=== PATIENT | male | born 1950 | race Caucasian/White ===

== ENCOUNTER 2016-12-06 13:02 | Emergency (ER) | payer OTHER ==
--- NOTE | ~2016-12-06 | MR18 ---
[facility] A Service [facility] RADIOLOGY TEXT RESULTS PATIENT: SUSI GALINDO LOCATION: [facility] : 50 UNIT #: [id number] AGE: [address]: Praveen Davis MD SEX: M ORDER DR: [id number] [facility] [address] [place], [place] [address] [id number] E MR#: [id number] Acc #: [id number] NAME: SUSI GALINDO : 1950 SEX: M STUDY DATE/TIME: 12/06/2016 10:28 UNIT: ROLA ROOM: STUDY DESCRIPTION: MR Brain Wo Contrast Attending Physician: Praveen Davis M.D. Ordering Physician: Praveen Davis M.D. Primary Care Physician: Letty Carrillo M.D. MRI CENTER REPORT This report is preliminary unless electronic signature is present. EXAM MR brain, 12/06 INDICATION Hypertension. Patient awoke earlier this morning feeling off balance. Patient does not feel right. TECHNIQUE Multisequence multiplanar imaging was performed through the brain without contrast in a high field strength magnet. COMPARISON Brain MRI from 08/17/2016. FINDINGS Diffusion imaging reveals no evidence of acute or subacute ischemic change. Ventricular size and configuration are stable. Scattered T2 hyperintensities in the white matter are most consistent with chronic small vessel ischemic disease. These appear stable. No evidence of hemorrhage. The major intracranial flow voids are maintained. There are no masses. Craniovertebral junction is normal. Note is made of some chronic mucosal thickening in the paranasal sinuses. These are most pronounced in the right maxillary sinus. IMPRESSION 1. No acute findings in the brain. 2. Mild chronic small vessel ischemic disease in the white matter, stable from prior. 3. Chronic mucosal thickening in the paranasal sinuses. Dictated by... Bud Johnson Jr., M.D. [facility] A Service [facility] RADIOLOGY TEXT RESULTS PATIENT: SUSI GALINDO LOCATION: [facility] : 50 UNIT #: [id number] AGE: [address]: Praveen Davis MD SEX: M ORDER DR: THIS IS AN ELECTRONICALLY VERIFIED REPORT Bud Johnson Jr., M.D. at 12/06/2016 7:01 PM LAURIE/gene TD: 12/06/2016 13:12 JOB #: [id number] MRI CENTER REPORT Page 1 of 1 COPY
--- NOTE | ~2016-12-06 | CT17 ---
[facility] Service [facility] RADIOLOGY TEXT RESULTS PATIENT: SUSI GALINDO LOCATION: [facility] : 50 UNIT #: [id number] AGE: [address]: Praveen Davis MD SEX: M ORDER DR: [id number] [facility] [address] [place], [place] [address] [id number] E MR#: [id number] Acc #: [id number] NAME: SUSI GALINDO : 1950 SEX: M STUDY DATE/TIME: 12/06/2016 12:03 UNIT: [facility] ROOM: STUDY DESCRIPTION: CT Angio Head Attending Physician: Praveen Davis M.D. Ordering Physician: Praveen Davis M.D. Primary Care Physician: Letty Carrillo M.D. MEDICAL IMAGING REPORT This report is preliminary unless electronic signature is present EXAM Head and neck CT angiogram 12/06/2016 INDICATION Elevated blood pressure today with dizziness and off balance today. Prior history of stroke. TECHNIQUE Axial images were obtained through the head and neck following the IV administration of contrast. 3-D reformats were obtained. Comparison is made with 08/17/2016. This CT examination was performed with one or more of the following radiation dose reduction techniques: automatic exposure control, adjustment of mA and/or kV according to patient size, and iterative reconstruction. FINDINGS Within the neck, there is some minimal plaque disease at the carotid bifurcations, but there is no stenosis by NASCET criteria. There is no evidence of carotid or vertebral dissection. The right vertebral artery is mildly dominant, but both are widely patent. Intracranially, there is no flow-limiting stenosis by NASCET criteria. No aneurysm or vascular malformation is seen. There is no vessel cutoff. Major dural venous sinuses are patent. IMPRESSION 1. Minimal plaque in the carotid bifurcations. No evidence of stenosis by NASCET criteria in the neck. No dissection. 2. Intracranially, there is no aneurysm or flow-limiting stenosis. No vessel cutoff. [facility] RADIOLOGY TEXT RESULTS PATIENT: SUSI GALINDO [id number] 50 UNIT #: [id number] AGE: [address]: Praveen Davis MD SEX: M ORDER DR: Dictated by... Bud Johnson Jr., M.D. THIS IS AN ELECTRONICALLY VERIFIED REPORT Bud Johnson Jr., M.D. at 12/07/2016 8:51 AM LAURIE/hamzah TD: 12/06/2016 14:17 JOB #: [id number] MEDICAL IMAGING REPORT Page 1 of 1 COPY
--- NOTE | ~2016-12-06 | CT23 ---
[facility] A Service of [facility] RADIOLOGY TEXT RESULTS PATIENT: SUSI GALINDO LOCATION: [facility] : 50 UNIT #: [id number] AGE: [address]: Praveen Davis MD SEX: M ORDER DR: [id number] [facility] [address] [place], [place] [address] [id number] E MR#: [id number] Acc #: [id number] NAME: SUSI GALINDO : 1950 SEX: M STUDY DATE/TIME: 12/06/2016 12:03 UNIT: [facility] ROOM: STUDY DESCRIPTION: CT Angio Neck Attending Physician: Praveen Davis M.D. Ordering Physician: Praveen Davis M.D. Primary Care Physician: Letty Carrillo M.D. MEDICAL IMAGING REPORT This report is preliminary unless electronic signature is present EXAM CT angiogram of the neck FINDINGS Please see CT angiogram of the head for results. Dictated by... Bud Johnson Jr., M.D. THIS IS AN ELECTRONICALLY VERIFIED REPORT Bud Johnson Jr., M.D. at 12/07/2016 8:52 AM LAURIE/hamzah TD: 12/06/2016 14:18 JOB #: [id number] MEDICAL IMAGING REPORT Page 1 of 1 COPY
--- NOTE | ~2016-12-06 | EKG ---
PATIENT: SUSI GALINDO UNIT #: [id number] Ventricular Rate: 59 BPM Atrial Rate: 59 BPM P-R Interval: 166 ms QRS Duration: 90 ms Q-T Interval: 422 ms QTC Calculation(Bezet): 417 ms P Hartwick: 237 degrees Calculated R Hartwick: 73 degrees Calculated T Hartwick: 57 degrees Diagnosis Line: Unusual P axis, possible ectopic atrial Diagnosis Line: bradycardia with Premature supraventricular Diagnosis Line: complexes Diagnosis Line: Abnormal ECG Diagnosis Line: When compared with ECG of 17-AUG-2016 00:53, Diagnosis Line: Premature supraventricular complexes are now Diagnosis Line: Present Diagnosis Line: T wave inversion no longer evident in Anterior Diagnosis Line: leads Diagnosis Line: Confirmed by ZEE KESSLER MD ([id number]) on 12/06/2016 Diagnosis Line: 10:37:30 PM INTERPRETING MD: CHECO MENDOZA
--- NOTE | ~2016-12-06 | CR72 ---
[facility] A Service of [facility] & [facility] RADIOLOGY TEXT RESULTS PATIENT: SUSI GALINDO LOCATION: [facility] : 50 UNIT #: [id number] AGE: [address]: Praveen Davis MD SEX: M ORDER DR: [id number] [facility] [address] [place], [place] [address] [id number] MR#: [id number] Acc #: [id number] NAME: SUSI GALINDO : 1950 SEX: M STUDY DATE/TIME: 12/06/2016 10:00 UNIT: [facility] ROOM: STUDY DESCRIPTION: CR Chest Single View Portable Attending Physician: Praveen Davis M.D. Ordering Physician: Praveen Davis M.D. Primary Care Physician: Letty Carrillo M.D. MEDICAL IMAGING REPORT This report is preliminary unless electronic signature is present EXAM Portable AP view of the chest COMPARISON None. INDICATION 66-year-old male with elevated blood pressure today. Dizziness. Former smoker. FINDINGS Cardiomediastinal silhouette is normal. No evidence of pneumothorax, pleural effusion or acute airspace disease. There are calcified granulomas in the right lung with calcified right hilar lymph nodes. No evidence of acute airspace disease. IMPRESSION No acute radiographic abnormality of the chest. Dictated by... Low Kemp M.D. THIS IS AN ELECTRONICALLY VERIFIED REPORT Low Kemp M.D. at 12/10/2016 5:43 PM CAROL/hamzah TD: 12/06/2016 12:09 JOB #: [id number] MEDICAL IMAGING REPORT Page 1 of 1 COPY
[2016-12-06 10:12] LABS: BASOPHIL% 0.7 % (0-2.5); EOSINOPHIL# 0.3 X10e3 (0-0.7); EOSINOPHIL% 4.2 % (0.0-7.0); HEMATOCRIT 44.8 % (38.0-50.0); HEMOGLOBIN 14.7 gm/dL (13.0-16.0); LYMPHOCYTE# 2.1 X10e3 (1.0-3.5); LYMPHOCYTE% 32.8 % (17.0-45.0); MEAN CELL VOLUME 97.2 FL (83-96); MEAN CORPUSCULAR HEMOGLOBIN 31.8 PG (28-34); MEAN CORPUSCULAR HGB CONC 32.7 g/dL (30-36); MEAN PLATELET VOLUME 9.1 FL (6.5-11.5); MONOCYTE# 0.5 X10e3 (0-1.0); MONOCYTE% 8.5 % (3.0-12.0); NEUTROPHIL# 3.4 X10e3 (1.5-7.1); NEUTROPHIL% 53.8 % (40-75); PLATELET COUNT 120 X10e3 (140-420); RED BLOOD COUNT 4.61 X10e (3.90-5.60); WHITE BLOOD COUNT 6.3 X10e3 (4.0-10.5)
[2016-12-06 10:14] LABS: DIFF IND NO
[2016-12-06 10:15] LABS: POC - CKMB 1.2 ng/mL (0.0-7.9); POC - TROPONIN <0.05 ng/mL (<=0.05)
[2016-12-06 11:13] LABS: BILIRUBIN, DIRECT 0.1 mg/dL (0.0-0.2); BILIRUBIN,INDIRECT 0.5 mg/dL (0.0-0.9); BILIRUBIN,TOTAL 0.6 mg/dL (0.2-2.0); BUN/CREATININE RATIO 15.55; CALCIUM SERUM 11.2 mg/dL (8.4-10.2); CREATININE SERUM 0.9 mg/dL (0.6-1.4); GLOM FILT RATE Estimated 88.7 mL/min (>60); POTASSIUM 3.6 mmol/L (3.5-5.1); PROTEIN TOTAL SERUM 6.6 g/dL (6.0-8.3)
[2016-12-06 11:49] LABS: URINE SOURCE CLEAN CATCH
[2016-12-06 11:56] LABS: URINE APPEARANCE CLEAR; URINE BILIRUBIN NEG (NEG); URINE BLOOD NEG (NEG); URINE COLOR YELLOW; URINE GLUCOSE NEG (NEG); URINE KETONE NEG (NEG); URINE LEUKOCYTE ESTERASE NEG (NEG); URINE NITRATE NEG (NEG); URINE PH 7.5 (5-8); URINE PROTEIN NEG (NEG); URINE SPECIFIC GRAVITY 1.013 (1.003-1.035)
[2016-12-06 12:00] LABS: CULTURE INDICATED? NO
[2016-12-06 12:29] LABS: POC - TROPONIN <0.05 ng/mL (<=0.05)
[~2016-12-06 13:02] MED LIST: COUMADIN5 MG PO; ENOXAPARIN100 MG/11 SQ; HYDRALAZINE HCL25 MG PO; HYTRIN10 M1 PO; LIPITOR40 MG; LISINOPRIL20 MG PO; NORCO 5/325 TAB1 TAB PO; PRILOSEC20 M1 PO; PRINIVIL10 MG PO
== END 2016-12-06 14:10 | disposition home or self-care (01) ==
LOC: CED 13:02
PROVIDERS: Emergency Medicine
DX: I10 Essential (primary) hypertension (principal); F17.200 Nicotine dependence, unspecified, uncomplicated; Z88.8 Allergy status to other drugs, medicaments and biological substances; Z91.013 Allergy to seafood
CPT/HCPCS: 36415; 70496; 70498; 70551; 71010; 80048; 80076; 81003; 82553; 82947; 84484; 85025; 93005; 99284; Q9967

== ENCOUNTER 2017-02-02 00:14 | Observation (INO) | payer OTHER ==
--- NOTE | ~2017-02-02 | CO ---
Unit #: [id number] #: [id number] Patient: SUSI GALINDO [id number] [facility] [address] [place], [place] [address] [id number] I MR#: [id number] NAME: SUSI GALINDO ROOM: 302 Age: 66 Sex: M Admission Date: 02/02/2017 : 1950 Attending Physician: Nichelle West M.D. Primary Care Physician: Letty Carrillo M.D. Requesting Physician: Nichelle West M.D. Consultation Date: 02/02/2017 CONSULTATION REPORT REASON FOR CONSULTATION Episode of dizziness and what he calls blurred vision. PATIENT IDENTIFICATION This is a 66-year-old right-handed white male who was evaluated in room [address] [facility]. SOURCE OF INFORMATION The patient and previous records. We saw this gentleman in August 2016. He at that time had multiple strokes. PROBLEM LIST 1. Prior stroke. He is on anticoagulation with Coumadin. INR was 2. 2. Hypertension. 3. Gastroesophageal reflux disease. 4. Hepatocellular carcinoma diagnosed in November 2015. He had resection done. 5. Prior history of mild hypercalcemia and PTAH consistent with primary tertiary hyperparathyroidism. 6. Cataract extraction. 7. Teeth extraction. 8. Gallbladder surgery. 9. Acid reflux. HISTORY OF PRESENT ILLNESS This is a very pleasant 66-year-old gentleman who actually came around midnight to the hospital for blurred vision. He reports that he was sitting and suddenly he noticed as if the they turned inwards. He reported blurred vision. He did not report any double vision. He says that this lasted probably less than a minute, and he got up and walked in the room to a TV or something, and his symptoms resolved within a few minutes. He particularly does not say double vision, loss of vision, headaches, numbness, tingling, or any other issues. His INR was 2.1, and his other labs looked okay. He is on Lipitor. He was seen on August 17, 2016, and he had an MRI done which was abnormal, but he had a CTA done which was okay. He had an MRI and CTA done in December which were okay. Today's MRI was okay. His CTA was okay. He reports two other episodes where he felt like tunnel vision lasting a minute or so, and then everything went away. He denies palpitations or any other issues. He has had abnormal GORGE. No falls or injury. No Unit #: [id number] #: [id number] Patient: SUSI GALINDO A change in medication. No seizures. No passing out. He is rather anxious, but I am not seeing anything else. As I mentioned, his labs do not look bad. Imaging studies were discussed which were MRI of the brain and CTA of the head. PAST MEDICAL HISTORY As discussed above. PAST SURGICAL HISTORY As discussed above. ALLERGIES Propoxyphene from [place] and shellfish. HOME MEDICATIONS 1. Coumadin 10 mg daily. 2. Lipitor 40 mg daily. 3. Hydralazine 25 mg twice daily. 4. Lisinopril 20 mg daily. 5. Prilosec 40 mg daily. FAMILY HISTORY [place] chorea. SOCIAL HISTORY The patient is and lives with his . He stopped smoking in 2012. He used to drink in the past but has not had a drink in several years. He denies illicit drug use. REVIEW OF SYSTEMS A detailed review of systems was attempted. CONSTITUTIONAL: Patient denies any sleep issues, fever, chills, rigors, or sweats. HEENT: No headaches, (1) , and no earache, runny nose, or sore throat. CARDIOVASCULAR: No chest pain, clubbing, cyanosis, orthopnea, or palpitations. PULMONARY: No shortness of air, cough, or expectoration. GASTROINTESTINAL: No nausea, vomiting, diarrhea, or constipation. GENITOURINARY: No genitourinary symptoms. EXTREMITIES: No extremity problems. BACK: No back problems. PSYCHIATRIC: No psychiatric issues. NEUROLOGIC: No other neurologic issue. HEMATOLOGIC: No hematologic problems. He is anticoagulated. DERMATOLOGIC: No dermatologic problems. ENDOCRINE: No endocrine problems. PHYSICAL EXAMINATION VITAL SIGNS: Temperature 98 degrees Fahrenheit and that is essentially the T-max, pulse is anywhere from 56 to 99, respirations are 17 to 24, blood pressure is anywhere 114 systolic to 147 and from 78 diastolic to 102 diastolic, and his O2 saturations are 93% to 99%. Weight of 225 pounds. BMI was 33. NEUROLOGICAL EXAMINATION MENTAL STATUS: Patient is awake. He is alert. He is oriented. He can name, and he can follow commands. No [id number] confusion, no finger agnosia. Unit #: [id number] #: [id number] Patient: SUSI GALINDO CRANIAL NERVES: Examination demonstrates full mckenzie of vision to confrontation. Eye movements are conjugate. I did not see any ptosis, and I did not see any nystagmus. Pupils are round and reactive to light and accommodation. Photoscopic examination was not successful. Sensations on the face and scalp are normal. Strength of muscles of facial expression are normal. Hearing seemed to be intact bilaterally. Tongue was midline, uvula was midline, and palate elevations were normal. Head turning and shoulder shrugs were unremarkable. MOTOR: Normal bulk, tone, and strength was essentially 5 over 5. SENSORY: Intact for soft touch and pain sensation. No extinction was seen. Romberg was not evaluated. GAIT: Deferred. REFLEXES: Were 1/4 in the upper extremities. I could not elicit any in the lower extremities. Toes are equivocal. COORDINATION: Otherwise unremarkable. DIAGNOSTIC STUDIES LABORATORY: Personally reviewed. IMAGING: Personally reviewed. IMPRESSION AND PLAN This is a very interesting 66-year-old gentleman with very nonspecific symptoms. I am not really impressed with any particular neurologic issue, though what bothers me is that this is probably the third event and sort of tunneled vision and dizziness. When he came in, his blood pressure was significantly elevated with diastolic of 102. His heart rate is everywhere, but his EKG was reported as sinus. He is already on Coumadin with an INR of 2.1. He is already on Lipitor. This does not sound or look like transient ischemic attack. This does not sound like anything else. The only thing of concern is to make sure the blood pressure is okay and also maybe consider a loop recorder or event monitor to find any particular dysrhythmia. But again, what would be the treatment. There is a little bit of anxiety, but neurologically he is okay and neurologically nothing else to add. Not a stroke for sure, and I really doubt that this was a transient ischemic attack. I am not really seeing anything particularly, and he had these nonspecific symptoms, and he did not report any particular abnormality except for blurred vision which has resolved. Ophthalmology evaluation as an outpatient may be considered. No headaches. Nothing suggesting hemorrhage, but I cannot do ophthalmoscopic examination as it did not succeed. I will observe. He already sees Dr. Gomez. Call me with any other questions, issues, or concerns. Nothing else to add or change. I do want to check his B12 and folate level, and if they are okay, he may be discharged anytime. Dictated by... Bre Bentley/carri TD: 02/03/2017 15:23 JOB #: [id number] Unit #: [id number] #: [id number] Patient: SUSI GALINDO CONSULTATION REPORT Page 1 of 1 X Neil Avendaño MD X CONSULTATION REPORT
--- NOTE | ~2017-02-02 | MR18 ---
[facility] A Service [facility] RADIOLOGY TEXT RESULTS PATIENT: SUSI GALINDO LOCATION: [facility] : 50 UNIT #: [id number] AGE: [address]: Nichelle West MD SEX: M ORDER DR: [id number] [facility] [address] [place], [place] [address] [id number] I MR#: [id number] Acc #: [id number] NAME: SUSI GALINDO. : 1950 SEX: M STUDY DATE/TIME: 02/02/2017 7:55 UNIT: A PCU ROOM: [facility] STUDY DESCRIPTION: MR Brain Wo Contrast Attending Physician: Nichelle West M.D. Ordering Physician: Sujatha Rodriguez M.D. Primary Care Physician: Ltety Carrillo M.D. MRI CENTER REPORT This report is preliminary unless electronic signature is present. EXAM Brain MRI without contrast. DATE 02/02/2017 COMPARISON None. CLINICAL HISTORY Three day history of blurred vision and dizziness. PROCEDURE Routine unenhanced brain MRI. FINDINGS There is no MR evidence of acute ischemia or other restricted diffusion. There is no evidence of acute or chronic intracranial hemorrhage. There are some nonspecific white matter changes likely indicating mild small vessel ischemic change, but certainly not greater than expected for age. There is also mild volume loss again not atypical for age. Normal flow voids are seen in the cerebral vessels. Bone marrow signal is normal. There is some right maxillary and bilateral ethmoid sinus mucosal thickening but the extracranial structures are otherwise unremarkable. IMPRESSION 1. Mild volume loss and nonspecific white matter change and no acute abnormality. 2. Mild ethmoid and right maxillary sinus mucosal thickening. Dictated by... Kaushik Villagran M.D. [facility] A [facility] RADIOLOGY TEXT RESULTS PATIENT: SUSI GALINDO LOCATION: [facility] : 50 UNIT #: [id number] AGE: [address]: Nichelle West MD SEX: M ORDER DR: THIS IS AN ELECTRONICALLY VERIFIED REPORT Kaushik Villagran M.D. at 02/04/2017 10:56 AM YESENIA/diane TD: 02/02/2017 21:38 JOB #: [id number] MRI CENTER REPORT Page 1 of 1 COPY
--- NOTE | ~2017-02-02 | DS ---
Unit #: [id number] #: [id number] Patient: SUSI GALINDO [id number] [address] [place], [place] [address] [id number] I MR#: [id number] NAME: SUSI GALINDO ROOM: 302 Age: 66 Sex: M Admission Date: 02/02/2017 : 1950 Discharge Date: 02/03/2017 Attending Physician: Nichelle West M.D. Primary Care Physician: Letty Carrillo M.D. DISCHARGE SUMMARY REASON FOR ADMISSION Visual change/visual loss/dizziness. HISTORY OF PRESENT ILLNESS/HOSPITAL COURSE Please see H and P for details of initial part of hospital stay. The patient was subsequently admitted, placed on telemetry floor. Stroke protocol was initiated. Consultation was also placed to Dr. Avendaño of neurology services. The patient underwent a MRI brain without contrast. It did not show any acute process. Also, undergoing CT angiogram head and neck which again did not show any acute process. The patient was noted to have slightly decreased B12 at 304. This was appropriately repleted while he was here. Electrolytes, routine laboratory studies were ascertained and within normal range. His hemoglobin today at time of discharge was 14.5. Neurology services have stated that it seems unlikely it is either CVA versus TIA. His medications will be resumed including Coumadin, statin medication as per his routine home medications. I will give him a vitamin B12 IM injection prior to discharge. He will follow up with his PCP within one week to be set up for outpatient vitamin B12 injections. He will also follow up with his rn ortho in consideration of visual changes and/or visual loss. Consideration may be given to ENT outpatient referral. I believe he has seen Dr. Nj in the past. Consideration may be given for evaluation of inner ear etiology for his dizziness. All questions were answered and discussed with patient in detail. Patient appears clinically stable for discharge. FINAL DISCHARGE DIAGNOSES 1. Visual changes/visual loss, undefined etiology. 2. Dizziness/vertigo. 3. Prior history of transient ischemic attack/cerebrovascular accident. 4. Hypertension. 5. Hyperlipidemia. 6. Chronic anticoagulation. FINAL DISCHARGE MEDICATIONS 1. Coumadin 10 mg p.o. daily. 2. Lipitor 40 mg p.o. daily. 3. Hydralazine 25 mg p.o. b.i.d. 4. Lisinopril 20 mg p.o. daily. 5. Prilosec 40 mg p.o. daily. DISCHARGE CONDITION Unit #: [id number] #: [id number] Patient: SUSI GALINDO Stable. DISCHARGE DISPOSITION Home. Dictated by... Bre Munguia TD: 02/05/2017 16:01 JOB #: [id number] DISCHARGE SUMMARY Page 1 of 1 X Nichelle West MD X DISCHARGE SUMMARY
--- NOTE | ~2017-02-02 | CT17 ---
[facility] A Service [facility] RADIOLOGY TEXT RESULTS PATIENT: SUSI GALINDO LOCATION: [facility] : 50 UNIT #: [id number] AGE: [address]: Nichelle West MD SEX: M ORDER DR: [id number] [facility] [address] [place], [place] [address] [id number] I MR#: [id number] Acc #: [id number] NAME: SUSI GALINDO : 1950 SEX: M STUDY DATE/TIME: 02/02/2017 3:44 UNIT: [address] ROOM: [facility] STUDY DESCRIPTION: CT Angio Head Attending Physician: Nichelle West M.D. Referring Physician: Jake Cortez M.D. Ordering Physician: Eliot Moon M.D. Primary Care Physician: Letty Carrillo M.D. MEDICAL IMAGING REPORT This report is preliminary unless electronic signature is present EXAM CTA head. INDICATIONS Blurred vision for 1 day. Dizziness for [address] angiography of the head and neck with IV contrast. Coronal and sagittal 3-D MIP reconstructions were obtained. Volume rendered and surface rendered reconstructions were performed. Curved planar reconstructions were acquired. This CT exam was performed with one or more of the following radiation dose reduction techniques: automatic exposure control, adjustment of mA and/or kV according to patient size, and iterative reconstruction. COMPARISON CT head and neck, 12/06/2016. FINDINGS Please see CTA neck performed 02/02/2017 for results. Dictated by... Buster Foote M.D. THIS IS AN ELECTRONICALLY VERIFIED REPORT Bsuter Foote M.D. at 02/03/2017 1:02 AM NAEEM/diane TD: 02/02/2017 17:53 [facility] A Service [facility] RADIOLOGY TEXT RESULTS PATIENT: SUSI GALINDO LOCATION: [facility] : 50 UNIT #: [id number] AGE: [address]: Nichelle West MD SEX: M ORDER DR: JOB #: [id number] MEDICAL IMAGING REPORT Page 1 of 1 COPY
--- NOTE | ~2017-02-02 | CT71 ---
[facility] A Service [facility] RADIOLOGY TEXT RESULTS PATIENT: SUSI GALINDO LOCATION: [facility] : 50 UNIT #: [id number] AGE: [address]: Nichelle West MD SEX: M ORDER DR: [id number] [facility] [address] [place], [place] [address] [id number] I MR#: [id number] Acc #: [id number] NAME: SUSI GALINDO : 1950 SEX: M STUDY DATE/TIME: 02/02/2017 3:42 UNIT: [address] ROOM: [facility] STUDY DESCRIPTION: CT Head Wo Contrast Attending Physician: Nichelle West M.D. Ordering Physician: Eliot Moon M.D. Primary Care Physician: Letty Carrillo M.D. MEDICAL IMAGING REPORT This report is preliminary unless electronic signature is present EXAM CT head without contrast INDICATIONS History of stroke. Blurred vision for 1 day, dizziness for [address] head dated 08/17/2016. TECHNIQUE Axial noncontrast images were obtained from the skull base to the vertex. This CT exam was performed with one or more of the following radiation dose reduction techniques: automatic exposure control, adjustment of mA and/or kV according to patient size, and iterative reconstruction. FINDINGS Ventricular size and configuration are normal. There is no evidence of acute infarct or hemorrhage. There are no extra-axial fluid collections. No mass lesion or mass effect is seen. There are no skull fractures. There is some mild mucosal thickening in the paranasal sinuses. IMPRESSION Normal noncontrast head CT. Dictated by... Buster Foote M.D. THIS IS AN ELECTRONICALLY VERIFIED REPORT Buster Foote M.D. at 02/03/2017 1:02 AM NAEEM/antonio TD: 02/02/2017 17:36 [facility] A Service [facility] RADIOLOGY TEXT RESULTS PATIENT: SUSI GALINDO LOCATION: [facility] 01 : 50 UNIT #: [id number] AGE: [address]: Nichelle West MD SEX: M ORDER DR: JOB #: [id number] MEDICAL IMAGING REPORT Page 1 of 1 COPY
--- NOTE | ~2017-02-02 | EKG ---
PATIENT: SUSI GALINDO UNIT #: [id number] Ventricular Rate: 67 BPM Atrial Rate: 67 BPM P-R Interval: 152 ms QRS Duration: 92 ms Q-T Interval: 388 ms QTC Calculation(Bezet): 409 ms P [place]: 68 degrees Calculated R [place]: 77 degrees Calculated T [place]: 47 degrees Diagnosis Line: Sinus rhythm with Premature atrial complexes with Diagnosis Line: Aberrant conduction Diagnosis Line: Otherwise normal ECG Diagnosis Line: When compared with ECG of 06-DEC-2016 09:55, Diagnosis Line: Sinus rhythm has replaced Ectopic atrial rhythm Diagnosis Line: Confirmed by RONALDO MEHTA MD ([id number]) on Diagnosis Line: 02/04/2017 11:04:53 AM INTERPRETING MD: TYSON MENDOZA
--- NOTE | ~2017-02-02 | CT23 ---
[facility] Service of [facility] RADIOLOGY TEXT RESULTS PATIENT: SUSI GALINDO LOCATION: [facility] 302- : 50 UNIT #: [id number] AGE: [address]: Nichelle West MD SEX: M ORDER DR: [id number] [facility] [address] [place], [place] [address] [id number] MR#: [id number] #: [id number] NAME: SUSI GALINDO : 1950 SEX: M STUDY DATE/TIME: 02/02/2017 3:44 UNIT: A [facility] ROOM: [facility] STUDY DESCRIPTION: CT Angio Neck Attending Physician: Nichelle West M.D. Referring Physician: Jake Cortez M.D. Ordering Physician: Eliot Moon M.D. Primary Care Physician: Letty Carrillo M.D. MEDICAL IMAGING REPORT This report is preliminary unless electronic signature is present EXAM CTA head and neck. INDICATIONS Blurred vision for 1 day. Dizziness for [address] angiography of the head and neck with IV contrast. Coronal and sagittal 3-D MIP reconstructions were obtained. Volume rendered and surface rendered reconstructions were performed. Curved planar reconstructions were acquired. This CT exam was performed with one or more of the following radiation dose reduction techniques: automatic exposure control, adjustment of mA and/or kV according to patient size, and iterative reconstruction. COMPARISON CT head and neck, 12/06/2016. FINDINGS CTA NECK: There is a three-vessel aortic arch. No evidence of a significant carotid arterial stenosis (when utilizing the NASCET criteria). There is mild plaque at the left carotid bifurcation. Both vertebral arteries are patent with antegrade flow. CTA HEAD: The intracranial internal carotid arteries are patent. No significant atherosclerotic disease. Both the anterior cerebral arteries and the middle cerebral arteries are patent. The anterior communicating artery is patent. The right posterior communicating artery is patent. The left posterior communicating artery is not clearly seen. Vertebral basilar artery and the posterior cerebral arteries are within normal limits. No dural venous thrombus. No abnormal enhancing mass or lesion. [facility] A Service of [facility] RADIOLOGY TEXT RESULTS PATIENT: SUSI GALINDO LOCATION: [facility] 302-01 : 50 UNIT #: [id number] AGE: [address]: Nichelle West MD SEX: M ORDER DR: IMPRESSION 1. Mild atherosclerotic disease at the carotid bifurcations, however, no evidence of a significant stenosis in the neck. 2. No evidence of a significant vascular stenosis, thrombosis, or aneurysm. Dictated by... Buster Foote M.D. THIS IS AN ELECTRONICALLY VERIFIED REPORT Buster Foote M.D. at 02/03/2017 1:01 AM NAEEM/diane TD: 02/02/2017 17:49 JOB #: [id number] MEDICAL IMAGING REPORT Page 1 of 1 COPY
--- NOTE | ~2017-02-02 | HP ---
Unit #: [id number] #: [id number] Patient: SUSI GALINDO [id number] [address] [place], [place] [address] [id number] MR#: [id number] NAME: SUSI GALINDO ROOM: 302 Age: 66 Sex: M Admission Date: 02/02/2017 : 1950 Attending Physician: Nichelle West M.D. Primary Care Physician: Letty Carrillo M.D. HISTORY AND PHYSICAL REASON FOR ADMISSION Visual changes, blurry vision, loss of focus, imbalance. HISTORY OF PRESENT ILLNESS The patient is a very pleasant 66-year-old male who states he was sitting and talking on the phone when he began developing visual changes. He felt as though he initially had tunnel-like vision. His eyelids felt very heavy as well. His right eye began deviating toward his nasal side. He became very confused. He stated that he tried to get up, unfortunately he had difficulty ambulating, and subsequently he called a friend who brought him to the emergency department for evaluation. PAST MEDICAL HISTORY Hospital admission 08/2016, I believe secondary to TIA, prior history of hypertension, GERD, hepatocellular carcinoma diagnosed 11/2015, prior history of hepatic resection, primary tertiary hyperparathyroidism, history of cataract extraction, lens implant. ALLERGIES Darvon/shrimp. HOME MEDICATIONS Coumadin, Lipitor, hydralazine, lisinopril, Prilosec. SOCIAL HISTORY Resides at home with his . Quit smoking 2012. Positive 50 pack year smoking history. No alcohol use. No illicit drug use. REVIEW OF SYSTEMS Please see HPI. Twelve point otherwise negative except for those positive noted in the HPI. PHYSICAL EXAMINATION VITAL SIGNS: Temperature on admission 97.7, pulse 99, respiratory rate 18, blood pressure 147/102. GENERAL APPEARANCE: The patient is a very pleasant 66-year-old male lying comfortably in no acute distress. HEENT: Head exam - normocephalic and atraumatic. Ear exam - tympanic membranes do not reveal any erythema or injection. NECK EXAM: Supple. CVS: S1, S2, without murmur. RESPIRATORY: Clear. GI/ABDOMEN: Nontender and nondistended. LOWER EXTREMITIES: No evidence of any lower extremity edema. No calf Unit #: [id number] #: [id number] Patient: SUSI GALINDO tenderness. Homans sign is negative bilaterally. NEUROLOGIC: Cranial nerves II-XII appear to be grossly intact at the present time. PSYCHIATRIC: Patient demonstrates normal mood and affect. DIAGNOSTIC STUDIES IMAGING STUDIES: Patient has already undergone a CT head noncontrast performed in the emergency room, as well as an MRI. Both results are currently pending. LABORATORY STUDIES: BMP unremarkable with the exception of elevated calcium of 10.7. Hemoglobin 14.5. INITIAL IMPRESSION 1. Acute visual changes, possible underlying TIA. 2. Prior history of TIA, 08/2016. 3. Prior history of hepatocellular carcinoma, status post resection. 4. Hypertension. 5. Hyperlipidemia. 6. History of GERD. PLAN Admission to Telemetry floor, stroke protocol. Neurology consult. MRI and MRA head and neck. Further hospital course to follow pending MRI results, as well as neurology evaluation. PT and OT evaluation prior to discharge. Dictated by Bre Munguia/edel TD: 02/05/2017 15:34 JOB #: [id number] HISTORY AND PHYSICAL Page 1 of 1 X Nichelle West MD X HISTORY AND PHYSICAL
[2017-02-02 02:32] LABS: BASOPHIL% 0.6 % (0-2.5); EOSINOPHIL# 0.2 X10e3 (0-0.7); EOSINOPHIL% 3.1 % (0.0-7.0); HEMATOCRIT 43.8 % (38.0-50.0); HEMOGLOBIN 14.5 gm/dL (13.0-16.0); LYMPHOCYTE# 2.6 X10e3 (1.0-3.5); LYMPHOCYTE% 32.6 % (17.0-45.0); MEAN CELL VOLUME 97.3 FL (83-96); MEAN CORPUSCULAR HEMOGLOBIN 32.3 PG (28-34); MEAN CORPUSCULAR HGB CONC 33.2 g/dL (30-36); MEAN PLATELET VOLUME 9.1 FL (6.5-11.5); MONOCYTE# 0.7 X10e3 (0-1.0); MONOCYTE% 8.6 % (3.0-12.0); NEUTROPHIL# 4.3 X10e3 (1.5-7.1); NEUTROPHIL% 55.1 % (40-75); PLATELET COUNT 132 X10e3 (140-420); RED CELL DISTRIBUTION WIDTH 13.9 % (11.0-15.5); WHITE BLOOD COUNT 7.9 X10e3 (4.0-10.5)
[2017-02-02 02:39] LABS: DIFF IND NO
[2017-02-02] MEDS ORDERED: COUMADIN10 MG PO (02:45)
[2017-02-02] MEDS ORDERED: LIPITOR40 MG PO (02:45)
[2017-02-02] MEDS ORDERED: HYDRALAZINE HCL25 MG PO (02:46)
[2017-02-02] MEDS ORDERED: LISINOPRIL20 MG PO (02:46)
[2017-02-02] MEDS ORDERED: PRILOSEC PO (02:46)
[2017-02-02 02:54] LABS: PARTIAL THROMBOPLASTIN TIME 34.9 SECONDS (23.5-31.3)
[2017-02-02 02:59] LABS: INR 2.1; PROTHROMBIN TIME (PATIENT) 23.4 SECONDS (10.0-11.7)
[2017-02-02 03:00] LABS: CALCIUM SERUM 10.7 mg/dL (8.4-10.2); GLOM FILT RATE Estimated 78.1 mL/min (>60); POTASSIUM 3.6 mmol/L (3.5-5.1)
[2017-02-02 16:13] LABS: FOLATE (FOLIC ACID) 8.6 ng/mL (>5.8)
[2017-02-03 10:13] LABS: BUN/CREATININE RATIO 17.5; CALCIUM SERUM 11.1 mg/dL (8.4-10.2); CREATININE SERUM 0.8 mg/dL (0.6-1.4); GLOM FILT RATE Estimated 93.1 mL/min (>60); POTASSIUM 3.8 mmol/L (3.5-5.1)
== END 2017-02-03 11:18 | disposition home or self-care (01) ==
LOC: CED 00:14 → CEDOF 05:29 → CED 05:52 → CEDOF 05:52 → C3A PCU 15:06 → CEDOF 15:06 → C3A PCU 02-03 11:18
PROVIDERS: Emergency Medicine; Family Medicine; Student in an Organized Health Care Education/Training Program
DX: H53.9 Unspecified visual disturbance (principal); R42 Dizziness and giddiness; Z86.73 Personal history of transient ischemic attack (TIA), and cerebral infarction without residual deficits; G93.89 Other specified disorders of brain; I65.29 Occlusion and stenosis of unspecified carotid artery; J32.0 Chronic maxillary sinusitis; J32.2 Chronic ethmoidal sinusitis; I10 Essential (primary) hypertension; E78.5 Hyperlipidemia, unspecified; K21.9 Gastro-esophageal reflux disease without esophagitis; Z79.01 Long term (current) use of anticoagulants; Z79.899 Other long term (current) drug therapy; Z87.891 Personal history of nicotine dependence; Z85.05 Personal history of malignant neoplasm of liver; Z98.890 Other specified postprocedural states; Z91.013 Allergy to seafood; Z88.5 Allergy status to narcotic agent; Z88.8 Allergy status to other drugs, medicaments and biological substances
CPT/HCPCS: 36415; 70450; 70496; 70498; 70551; 80048; 80061; 82607; 82746; 82947; 85025; 85610; 85730; 92523-GN; 92610; 93005; 99285; G0378; G8996-GN; G8997-GN; G8998-GN; J3420; Q9967

== ENCOUNTER → 2017-04-15 | Outpatient (CLI) | payer OTHER ==
[~2017-04-15] MED LIST changes: +COUMADIN10 MG PO; +LIPITOR40 MG PO; +PRILOSEC PO
== END | disposition home or self-care (01) ==
LOC: CLAB 14:02
DX: E83.51 Hypocalcemia (principal)
CPT/HCPCS: 36415; 82310